=== PATIENT | female | born 1950 | race Caucasian/White ===

== ENCOUNTER 2018-11-09 13:07 | Observation (INO) | payer MEDICARE, OTHER ==
[2018-11-09] MEDS ORDERED: KETOROLAC 30 MG/ML 1 ML VIAL IM STA (14:08)
--- NOTE | 2018-11-09 14:36 | ED ---
Upper Extremity HPI - General Chief Complaint: Extremity Injury, Upper Stated Complaint: Shoulder Pain, Nauseated Time Seen by Provider: 11/09/18 13:35 Source: patient Mode of arrival: ambulatory Limitations: no limitations - History of Present Illness Initial Comments: 68-year-old female patient presents to the emergency department today for evaluation of right arm pain. Patient states she started having some discomfort to the right shoulder last evening. Patient states throughout the night the pain worsens significantly. States today that the right arm is swollen and discolored. States that she did go to the chiropractor to get assistance however while there the manipulation was so painful she became nauseated and dizzy. She denies any vomiting. States that those other symptoms have resolved however her arm is still painful. She denies any injury to the arm. 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 She denies any fevers or chills with this. Denies any history of blood clot. Patient denies any recent rash, shortness breath, chest pain, abdominal pain, vomiting, diarrhea, constipation, back pain, numbness, tingling, hematuria, dysuria, urinary urgency, urinary frequency, headache, visual changes, or any other complaints. - Related Data Allergies Allergy/AdvReac Type Severity Reaction Status Date / Time cephalexin [From Keflex] Allergy Rash/Hives Verified 11/09/18 13:23 erythromycin base Allergy Rash/Hives Verified 11/09/18 13:23 [From Erythrocin] Review of Systems ROS Statement: Those systems with pertinent positive or pertinent negative responses have been documented in the HPI. ROS Other: All systems not noted in ROS Statement are negative. Past Medical History Past Medical History: No Reported History History of Any Multi-Drug Resistant Organisms: None Reported Past Surgical History: Ear Surgery, Hysterectomy Additional Past Surgical History / Comment(s): cataracts bilat eyes, D&C, cyst removed from nose Past Psychological History: No Psychological Hx Reported Smoking Status: Current every day smoker Past Alcohol Use History: None Reported Past Drug Use History: None Reported General Exam Limitations: no limitations General appearance: alert, in no apparent distress, other (This is a well- developed, well-nourished adult female patient in no acute distress. Vital signs upon presentation are temperature 99.0F, pulse 94, respirations 18, blood pressure 169/83, pulse ox 98% on room air.) Eye exam: Present: normal appearance, PERRL, EOMI. Absent: scleral icterus, conjunctival injection, periorbital swelling ENT exam: Present: normal exam, normal oropharynx, mucous membranes moist Respiratory exam: Present: normal lung sounds bilaterally. Absent: respiratory distress, wheezes, rales, rhonchi, stridor Cardiovascular Exam: Present: regular rate, normal rhythm, normal heart sounds. Absent: systolic murmur, diastolic murmur, rubs, gallop, clicks GI/Abdominal exam: Present: soft, normal bowel sounds. Absent: distended, tenderness, guarding, rebound, rigid Extremities exam: Present: normal capillary refill, other (Skin to the right arm is pink, fingers are cool to touch, radial pulses 2+ and equal bilaterally. Patient unable to perform passive or active range of motion. She has tenderness over the right shoulder, over the right upper arm. No swelling.). Absent: normal inspection, full ROM (Decreased range of motion due to increased pain with movement), tenderness, pedal edema, joint swelling, calf tenderness Neurological exam: Present: alert, oriented X3, CN II-XII intact Psychiatric exam: Present: normal affect, normal mood Skin exam: Present: warm, dry, intact, normal color. Absent: rash Course Vital Signs 11/09/18 11/09/18 13:17 18:29 Temperature 99 F 98.2 F Pulse Rate 94 Respiratory 18 Rate Blood Pressure 169/83 O2 Sat by Pulse 98 Oximetry Medical Decision Making - Medical Decision Making 68 year-old female patient presented to the emergency department today for evaluation of right shoulder pain that started last night. Patient states the pain started suddenly without injury. 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 Physical examination did reveal tenderness to the right shoulder and right upper arm. Patient is unable to move the arm without exquisite pain. Patient's neurovascular status is intact, pulses are 2+ and equal bilaterally. Labs reviewed and did reveal elevated white blood cell count at 12.6. C-reactive protein is 23.1. Patient did have temperature 99.0 upon arrival. She reports subjective fevers for the last 2 days. X-ray of the right shoulder is negative. We did perform ultrasound of the right upper extremity which was negative for any evidence of DVT. I did discuss the case with orthopedics and did express concern for septic arthritis. Instructions are to hold antibiotics at this time until they're able to evaluate her in the morning. There was no erythema or swelling surrounding the joint. Patient is currently afebrile. We did discuss the case with medicine, she'll be admitted to Dr. Santiago with orthopedics on consult, she agrees to withold antibiotics for possible culture in the morning. I did discuss all findings, results, and plan with the patient , she is agreeable. - Lab Data Result diagrams: 11/09/18 16:10 11/09/18 16:10 Lab Results 11/09/18 11/09/18 11/09/18 Range/Units 16:10 16:10 16:10 WBC 12.6 H (3.8-10.6) k/uL RBC 5.02 (3.80-5.40) m/uL Hgb 15.1 (11.4-16.0) gm/dL Hct 47.2 H (34.0-46.0) % MCV 94.1 (80.0-100.0) fL MCH 30.2 (25.0-35.0) pg MCHC 32.1 (31.0-37.0) g/dL RDW 12.7 (11.5-15.5) % Plt Count 250 (150-450) k/uL Neutrophils % 79 % Lymphocytes % 14 % Monocytes % 4 % Eosinophils % 1 % Basophils % 1 % Neutrophils # 10.0 H (1.3-7.7) k/uL Lymphocytes # 1.7 (1.0-4.8) k/uL Monocytes # 0.5 (0-1.0) k/uL Eosinophils # 0.1 (0-0.7) k/uL Basophils # 0.1 (0-0.2) k/uL Sodium 139 (137-145) mmol/L Potassium 4.4 (3.5-5.1) mmol/L Chloride 105 (98-107) mmol/L Carbon Dioxide 23 (22-30) mmol/L Anion Gap 11 mmol/L BUN 18 H (7-17) mg/dL Creatinine 0.68 (0.52-1.04) mg/dL Est GFR (CKD-EPI)AfAm >90 (>60 ml/min/1.73 sqM) Est GFR (CKD-EPI)NonAf >90 (>60 ml/min/1.73 sqM) Glucose 112 H (74-99) mg/dL Plasma Lactic Acid Pasha 0.9 (0.7-2.0) mmol/L Calcium 9.6 (8.4-10.2) mg/dL Total Bilirubin 0.6 (0.2-1.3) mg/dL AST 25 (14-36) U/L ALT 27 (9-52) U/L Alkaline Phosphatase 116 (38-126) U/L Troponin I (0.000-0.034) ng/mL C-Reactive Protein 23.1 H (<10.0) mg/L Total Protein 7.5 (6.3-8.2) g/dL Albumin 4.4 (3.5-5.0) g/dL 11/09/18 Range/Units 16:10 WBC (3.8-10.6) k/uL RBC (3.80-5.40) m/uL Hgb (11.4-16.0) gm/dL Hct (34.0-46.0) % MCV (80.0-100.0) fL MCH (25.0-35.0) pg MCHC (31.0-37.0) g/dL RDW (11.5-15.5) % Plt Count (150-450) k/uL Neutrophils % % Lymphocytes % % Monocytes % % Eosinophils % % Basophils % % Neutrophils # (1.3-7.7) k/uL Lymphocytes # (1.0-4.8) k/uL Monocytes # (0-1.0) k/uL Eosinophils # (0-0.7) k/uL Basophils # (0-0.2) k/uL Sodium (137-145) mmol/L Potassium (3.5-5.1) mmol/L Chloride (98-107) mmol/L Carbon Dioxide (22-30) mmol/L Anion Gap mmol/L BUN (7-17) mg/dL Creatinine (0.52-1.04) mg/dL Est GFR (CKD-EPI)AfAm (>60 ml/min/1.73 sqM) Est GFR (CKD-EPI)NonAf (>60 ml/min/1.73 sqM) Glucose (74-99) mg/dL Plasma Lactic Acid Pasha (0.7-2.0) mmol/L Calcium (8.4-10.2) mg/dL Total Bilirubin (0.2-1.3) mg/dL AST (14-36) U/L ALT (9-52) U/L Alkaline Phosphatase (38-126) U/L Troponin I <0.012 (0.000-0.034) ng/mL C-Reactive Protein (<10.0) mg/L Total Protein (6.3-8.2) g/dL Albumin (3.5-5.0) g/dL - Radiology Data Radiology results: report reviewed 4 views of the right shoulder are obtained. Report was reviewed in its entirety. Impression by Dr. Watson shows negative right shoulder exam. Venous Doppler duplex of the right upper extremities was obtained. Report was reviewed in its entirety. Impression by Dr. Watson shows negative for DVT. Normal right arm duplex venous sonogram. Disposition Clinical Impression: Intractable pain Narrative: R/O septic arthritis Disposition: ADMITTED IP TO THIS [facility] Condition: Serious Referrals: Sunday Starr MD [Primary Care Provider] - 1-2 days Decision to Admit Reason: Admit from EC Decision Date: 11/09/18 Decision Time: 18:51
--- NOTE | 2018-11-09 15:01 | XR ---
EXAMINATION TYPE: XR shoulder complete RT DATE OF EXAM: 11/09/2018 COMPARISON: NONE HISTORY: Arm pain and swelling TECHNIQUE: 4 views FINDINGS: I see no fracture nor dislocation. Glenohumeral joint is anatomic. There are no pathologic calcifications. IMPRESSION: Negative right shoulder exam.
--- NOTE | 2018-11-09 15:29 | US ---
EXAMINATION TYPE: US venous doppler duplex UE RT DATE OF EXAM: 11/09/2018 COMPARISON: CLINICAL HISTORY: Pain. Pain. No swelling. No redness. Patient states she lifted a heavy tray at wo rk. Patient states she took two aspirin yesterday for pain. SIDE PERFORMED: Right Right Arm: Negative for DVT IMPRESSION: Grayscale, color doppler, spectral doppler imaging performed of the deep veins of the upper extremiti es. There is normal flow, compressability and vascular waveforms. Normal right arm duplex venous sonogram.
[2018-11-09 16:32] LABS: Basophils # (A) 0.1 k/uL (0-0.2); Basophils % (A) 1 %; Eosinophils # (A) 0.1 k/uL (0-0.7); Eosinophils % (A) 1 %; HCT 47.2 % (34.0-46.0); HGB 15.1 gm/dL (11.4-16.0); Lymphocytes # (A) 1.7 k/uL (1.0-4.8); Lymphocytes % (A) 14 %; MCH 30.2 pg (25.0-35.0); MCHC 32.1 g/dL (31.0-37.0); MCV 94.1 fL (80.0-100.0); Mean Platelet Volume 6.8; Monocytes # (A) 0.5 k/uL (0-1.0); Monocytes % (A) 4 %; Neutrophils % (A) 79 %; Platelet Count 250 k/uL (150-450); RBC 5.02 m/uL (3.80-5.40); RDW 12.7 % (11.5-15.5); WBC 12.6 k/uL (3.8-10.6)
[2018-11-09 16:44] LABS: ALT 27 U/L (9-52); AST 25 U/L (14-36); Albumin 4.4 g/dL (3.5-5.0); Alkaline Phosphatase 116 U/L (38-126); Anion Gap 11 mmol/L; Blood Urea Nitrogen 18 mg/dL (7-17); C Reactive Protein 23.1 mg/L (<10.0); Calcium 9.6 mg/dL (8.4-10.2); Carbon Dioxide 23 mmol/L (22-30); Chloride 105 mmol/L (98-107); Glucose 112 mg/dL (74-99); Potassium 4.4 mmol/L (3.5-5.1); Sodium 139 mmol/L (137-145); Total Bilirubin 0.6 mg/dL (0.2-1.3); Total Protein 7.5 g/dL (6.3-8.2)
[2018-11-09] MEDS ORDERED: NALOXONE 0.4 MG/ML 1 ML VIAL IV PRN (18:39)
[2018-11-09] MEDS ORDERED: MORPHINE SULFATE 4 MG/ML SYRINGE IV PRN (18:39)
[2018-11-09] MEDS ORDERED: ONDANSETRON 4 MG/2 ML VIAL IVP PRN (18:39)
[2018-11-09] MEDS ORDERED: SODIUM CHLORIDE 0.9% 1,000 ML IV SCH (18:45)
[2018-11-09 20:46] VITALS: BMI 31.4
[2018-11-10] MEDS: KETOROLAC 30 MG/ML 1 ML VIAL IVP PRN ×2 (00:11→07:40)
[2018-11-10 06:52] VITALS: BP 153/72; PULSE 86; RESP 16; TEMP 98.6
--- NOTE | 2018-11-10 10:55 | P.CNOR ---
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 She presents for the primary issue of right shoulder pain. She says the pain started on Sunday she started to develop some soreness in she denies any fevers or chills denies any recent infections or illness. She says that she had increasing pain and went to a chiropractor where she had some work on her shoulder and massage with some oils. She says that she developed some shortness of breath and feelings that her airway was closing and she was recommended to go to the hospital. She presented to the emergency room and was found have continued right shoulder pain with a somewhat increased white count at 12.9 and elevated CRP. Her symptoms of her nausea and airway symptoms had resolved that point. In she was afebrile. She continued some pain at her right shoulder and had great copiously moving her right shoulder. She denied any swelling or erythema around her shoulder. She denied any trauma to her shoulder. Denies any problems of her right shoulder like this before. She says she did have some pain extending down her right arm and down toward her hand. She denied any problems in her neck. She had new problems at her left upper extremity her legs. She denies any chest pain. Today she feels that her extremity is improving. She was treated with Toradol and has had some improvement with this. She did not receive any antibiotics. She says she is not having numbness in her hands and fingers and she is able to slightly move her arm that her today than she was yesterday. She still sore at her right shoulder and hesitant to move her right shoulder but she is able to use her right arm to small degree. She denies any fevers chills. Denies any vomiting. Review of Systems As stated in the HPI. Denies any weakness or hand or fingers. She says her shoulder isn't really tender to press on. But has pain with motion. Past Medical History Past Medical History: No Reported History Additional Past Medical History / Comment(s): She says over the past year she has seen Dr. Wharton and Dr. Pitt but she is unclear as to what she had had treatment for. 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 History of Any Multi-Drug Resistant Organisms: None Reported Past Surgical History: Ear Surgery, Hysterectomy Additional Past Surgical History / Comment(s): cataracts bilat eyes, D&C, cyst removed from nose Past Psychological History: No Psychological Hx Reported Smoking Status: Current every day smoker Past Alcohol Use History: None Reported Past Drug Use History: None Reported - Past Family History Father History Unknown: Yes Mother Family Medical History: Congestive Heart Failure (CHF) Medications and Allergies Home Medications Medication Instructions Recorded Confirmed Type Fluticasone Nasal [place] [Flonase 1 spray EA NOSTRIL DAILY 11/09/18 11/09/18 History Nasal [place]] Ketorolac [Toradol] 10 mg PO Q8HR PRN #40 tab 11/10/18 Rx Allergies Allergy/AdvReac Type Severity Reaction Status Date / Time cephalexin [From Keflex] Allergy Rash/Hives Verified 11/09/18 19:00 erythromycin base Allergy Rash/Hives Verified 11/09/18 19:00 [From Erythrocin] Physical Examination Osteopathic Statement: *. No significant issues noted on an osteopathic structural exam other than those noted in the History and Physical/Consult. - Shoulder right Appearance: normal, other (At her right shoulder she does limit her motion. She is able to abduct her arm to approximately 40 and flex her arm to approximately 40 at her shoulder though she does a somewhat slowly. She has internal/external rotation with full internal rotation to 90 and external rotation to approximately 110. She is able to flex and extend her right elbow. She has full active and passive range range of motion at her wrist and hand and fingers. Her sensory is intact. There is no erythema at her shoulder. She is nontender to palpation at her shoulder. May be some mild soreness over her before meals joint. She does have some paravertebral spasm and spasm at her trapezium. She is good range of motion at her neck. She is nontender over her neck.) Results Her labs show white count to 12 and a slightly elevated CRP - Labs Labs: Abnormal Lab Results - Last 24 Hours (Table) 11/09/18 11/09/18 Range/Units 16:10 16:10 WBC 12.6 H (3.8-10.6) k/uL Hct 47.2 H (34.0-46.0) % Neutrophils # 10.0 H (1.3-7.7) k/uL BUN 18 H (7-17) mg/dL Glucose 112 H (74-99) mg/dL C-Reactive Protein 23.1 H (<10.0) mg/L H & H 11/09/18 Range/Units 16:10 Hgb 15.1 (11.4-16.0) gm/dL Hct 47.2 H (34.0-46.0) % Result Diagrams: 11/09/18 16:10 11/09/18 16:10 - Diagnostic results Shoulder x-ray: report reviewed, image reviewed (X-rays of her right shoulder show some degenerative change at her before meals joint. There is no evidence of fracture or dislocation. I do not see any obvious bony erosion.) Assessment and Plan Assessment: Acute right shoulder pain, improving with Toradol Right upper extremity pain No obvious infection, does not appear to be septic arthritis at her shoulder Plan: Acute right shoulder pain, improving with Toradol Right upper extremity pain No obvious infection, does not appear to be septic arthritis at her shoulder The patient has acute pain in her right shoulder affecting her right arm. She has had improvement with Toradol overnight. She is not receiving any antibiotic and she is not having evidence of fevers or chills and is not having any worsening at her right shoulder. Clinically she has been able to move around the hallways and walk quite comfortably and converse quite comfortably. She uses her right arm while she speaks but does have limited motion at her right shoulder. Her exam shows some soreness over her shoulder but there is no erythema there is no warmth there is no tenderness over her right shoulder joint. She is able to move her shoulder though through small ranges of motion. Clinically she does not seem to have evidence of acute infection or septic arthritis at her right shoulder. I do not plan surgical intervention for her. I had considered the possibility of a steroid injection at her right shoulder however she had problems with injections at her knees in the past and feels that was the steroid that gave her issues and declined the possibility of injection. I do not plan to pursue surgical intervention for her shoulder at this point though I do think she could benefit with further imaging likely in the form of MRI of her right shoulder. I think it is okay to schedule and have this done on an outpatient basis. I think it is okay for her to have regular diet and to be discharged home today from an orthopedic standpoint with close follow-up in approximately 1 week. It is possible that she has an acute rotator cuff tear versus the possibility of radicular symptoms at her right upper extremity and we can work with these issues up on an outpatient basis. I tried to explain this to her bedside. I offered her a sling to help with some comfort for her right shoulder and she declined. It is okay from orthopedic standpoint for her to be discharged home today and I discussed this with medicine service. We will follow her closely and outpatient basis. Time with Patient: Greater than 30
--- NOTE | 2018-11-10 13:22 | P.HPIM ---
History of Present Illness H&P Date: 11/10/18 Chief Complaint: Right arm pain This will serve both as a H&P and discharge summary. This is a 68-year-old female who presented to the emergency department with right shoulder pain, also fever and chills. She was seeing a chiropractor and during manipulation patient reported worsening pain, so he advised her to go to the emergency department. Upon arrival to the emergency department she did have a low-grade fever of 99. WBC 12.6, CRP 23.1. Patient was admitted for concern for septic arthritis. Dr. Chavez was consulted who did not feel this was septic arthritis, possible acute rotator cuff tear versus radicular symptoms. Recommends outpatient MRI for further imaging. Right shoulder x-ray was negative for fracture dislocation, venous Doppler of right upper extremity negative for any DVTs. Patient has been complaining of worsening cough over last several days she is noted to have wheezing on exam, will treat her for acute bronchitis. Review of Systems Constitutional: Reports chills, Reports chronic pain, Reports fatigue, Reports fever, Denies night sweats Ears, nose, mouth and throat: Denies dysphagia, Denies headache, Denies nasal congestion, Denies nasal discharge, Denies sore throat Cardiovascular: Denies dyspnea on exertion, Denies edema, Denies orthopnea, Denies palpitations, Denies syncope Respiratory: Reports cough, Reports cough with sputum, Reports dyspnea, Reports wheezing Gastrointestinal: Denies abdominal pain, Denies constipation, Denies diarrhea, Denies heartburn, Denies indigestion, Denies nausea, Denies vomiting Genitourinary: Denies dysuria, Denies flank pain, Denies hematuria, Denies nocturia, Denies urgency, Denies urinary frequency Musculoskeletal: Reports limitation of motion, Reports myalgias, Denies frequent falls, Denies muscle weakness, Denies neck pain, Denies neck stiffness Integumentary: Denies dryness, Denies lesions, Denies pruritus, Denies rash, Denies wounds Neurological: Denies ataxia, Denies confusion, Denies headaches, Denies seizures , Denies syncope, Denies tremors, Denies visual changes Psychiatric: Denies anxiety, Denies confusion, Denies depression, Denies insomnia, Denies irritability Endocrine: Denies palpitations, Denies polyuria, Denies thyroid mass, Denies weight change Hematologic/Lymphatic: Denies lymphadenopathy, Denies lymphedema Allergic/Immunologic: Reports wheezing Past Medical History Past Medical History: No Reported History Additional Past Medical History / Comment(s): She says over the past year she has seen Dr. Wharton and Dr. Pitt but she is unclear as to what she had had treatment for. 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 History of Any Multi-Drug Resistant Organisms: None Reported Past Surgical History: Ear Surgery, Hysterectomy Additional Past Surgical History / Comment(s): cataracts bilat eyes, D&C, cyst removed from nose Past Psychological History: No Psychological Hx Reported Smoking Status: Current every day smoker Past Alcohol Use History: None Reported Past Drug Use History: None Reported - Past Family History Father History Unknown: Yes Mother Family Medical History: Congestive Heart Failure (CHF) Medications and Allergies Home Medications Medication Instructions Recorded Confirmed Type Fluticasone Nasal [place] [Flonase 1 spray EA NOSTRIL DAILY 11/09/18 11/09/18 History Nasal [place]] Amoxicillin/Potassium Clav 1 tab PO Q12HR #14 tab 11/10/18 Rx [Augmentin 875-125 Tablet] Ketorolac [Toradol] 10 mg PO Q8HR PRN #40 tab 11/10/18 Rx Omeprazole 20 mg PO DAILY #30 cap 11/10/18 Rx Allergies Allergy/AdvReac Type Severity Reaction Status Date / Time cephalexin [From Keflex] Allergy Rash/Hives Verified 11/09/18 19:00 erythromycin base Allergy Rash/Hives Verified 11/09/18 19:00 [From Erythrocin] Physical Exam Vitals: Vital Signs Temp Pulse Pulse Resp BP BP Pulse Ox 11/10/18 06:47 98.6 F 86 16 153/72 95 11/10/18 01:28 138/82 11/09/18 23:00 98.3 F 84 18 168/71 95 11/09/18 20:49 146/72 11/09/18 19:30 98.4 F 96 16 164/80 97 11/09/18 19:18 68 18 158/78 99 11/09/18 18:29 98.2 F 11/09/18 13:17 99 F 94 18 169/83 98 Intake and Output 11/09/18 11/10/18 11/10/18 22:59 06:59 14:59 Other: Voiding Method Toilet Toilet Weight 88.451 kg - Constitutional General appearance: no acute distress - EENT Eyes: PERRLA, normal appearance ENT: hearing grossly normal, normal oropharynx - Neck Neck: lymphadenopathy, normal ROM, no thyromegaly Thyroid: bilateral: normal size, negative: enlarged, nodule - Respiratory Respiratory: bilateral: CTA, wheezing, negative: diminished, rhonchi - Cardiovascular Rhythm: regular Heart sounds: normal: S1, S2 - Gastrointestinal General gastrointestinal: no hepatomegaly, normal bowel sounds, no organomegaly , soft, no tenderness - Integumentary Integumentary: normal - Neurologic Neurologic: CNII-XII intact - Musculoskeletal Musculoskeletal: gait normal - Psychiatric Psychiatric: A&O x's 3 Results CBC & Chem 7: 11/09/18 16:10 11/09/18 16:10 Labs: Abnormal Lab Results - Last 24 Hours (Table) 11/09/18 11/09/18 Range/Units 16:10 16:10 WBC 12.6 H (3.8-10.6) k/uL Hct 47.2 H (34.0-46.0) % Neutrophils # 10.0 H (1.3-7.7) k/uL BUN 18 H (7-17) mg/dL Glucose 112 H (74-99) mg/dL C-Reactive Protein 23.1 H (<10.0) mg/L Thrombosis Risk Factor Assmnt - Choose All That Apply Each Risk Factor Represents 2 Points: Age 61-74 years Thrombosis Risk Factor Assessment Total Risk Factor Score: 2 Thrombosis Risk Factor Assessment Level: Low Risk Assessment and Plan Plan: 1. 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 Septic joint ruled out, orthopedics consulted, will do Toradol for pain control, MRI as outpatient. Venous Doppler negative for DVT, x-ray negative for dislocation or fracture. 2. Fever related to acute bronchitis. Augmentin [id number] by mouth twice a day for total week. 3. Tobacco use. Smoking cessation recommended, patient reports she has not required. The above impression and plan of care have been discussed and directed by signing physician. Yadi Olvera nurse practitioner acting as scribe for signing physician.
== END 2018-11-10 11:49 | disposition home or self-care (01) ==
LOC: EC 13:07 → 4SSUR 18:58
PROVIDERS: ADMIT Internal Medicine; ATTEND Internal Medicine
DX: M19.011 Primary osteoarthritis, right shoulder (principal); J20.9 Acute bronchitis, unspecified; M79.621 Pain in right upper arm; R79.82 Elevated C-reactive protein (CRP); M17.0 Bilateral primary osteoarthritis of knee; R11.0 Nausea; F17.200 Nicotine dependence, unspecified, uncomplicated; Z79.899 Other long term (current) drug therapy; Z88.1 Allergy status to other antibiotic agents; Z90.710 Acquired absence of both cervix and uterus; Z98.42 Cataract extraction status, left eye; Z98.41 Cataract extraction status, right eye; Z82.49 Family history of ischemic heart disease and other diseases of the circulatory system
CPT/HCPCS: 96376; 96374; 96372; 99285; 36415; 80053; 83605; 84484; 85025; 86140; 87040; 73030; 93971; G0378 ×2; J1885 ×2

== ENCOUNTER 2020-10-06 21:38 | Emergency (ER) | payer MEDICARE, OTHER ==
--- NOTE | 2020-10-06 22:25 | XR ---
EXAMINATION TYPE: XR foot complete LT DATE OF EXAM: 10/06/2020 COMPARISON: NONE HISTORY: Foot pain and swelling TECHNIQUE: 3 views FINDINGS: Metatarsals appear intact. I see no fracture nor dislocation. The toes appear intact. There are no erosions. IMPRESSION: Negative right foot exam.
[2020-10-06] MEDS ORDERED: KETOROLAC 15 MG/ML 1 ML VIAL IVP STA (22:30)
--- NOTE | 2020-10-06 22:58 | ED ---
General Adult HPI - General Chief complaint: Extremity Injury, Lower Stated complaint: L Foot swelling/pain Time Seen by Provider: 10/06/20 22:13 Source: patient Mode of arrival: ambulatory Limitations: no limitations - History of Present Illness Initial comments: 70-year-old female patient presents to the emergency department today for evaluation of pain to the left foot. Patient states that she is having redness, swelling, and extreme tenderness over the left great toe especially over the joint. Patient denies taking any medication for her symptoms. Denies fever or chills. Denies any known injury. Patient states the area is even very tender to touch. Denies history of similar symptoms. Denies excessive use of alcohol or beer. Patient denies any recent rash, cough, shortness of breath, chest pain, abdominal pain, nausea, vomiting, diarrhea, constipation, back pain, numbness, tingling, dizziness, weakness, hematuria, dysuria, urinary urgency, urinary frequency, headache, visual changes, or any other complaints. - Related Data Home Medications Medication Instructions Recorded Confirmed Fluticasone Nasal [place] [Flonase 1 spray EA NOSTRIL DAILY 11/09/18 11/09/18 Nasal [place]] Previous Rx's Medication Instructions Recorded Amoxicillin/Potassium Clav 1 tab PO Q12HR #14 tab 11/10/18 [Augmentin 875-125 Tablet] Ketorolac [Toradol] 10 mg PO Q8HR PRN #40 tab 11/10/18 Omeprazole 20 mg PO DAILY #30 cap 11/10/18 Indomethacin [Indocin] 50 mg PO Q8H #12 capsule 10/06/20 Allergies Allergy/AdvReac Type Severity Reaction Status Date / Time amlodipine Allergy Rash/Hives Verified 10/06/20 21:48 bupivacaine [From Marcaine] Allergy Rash/Hives Verified 10/06/20 21:47 cephalexin [From Keflex] Allergy Rash/Hives Verified 10/06/20 21:47 ciprofloxacin [From Cipro] Allergy Rash/Hives Verified 10/06/20 21:48 erythromycin base Allergy Rash/Hives Verified 10/06/20 21:47 [From Erythrocin] lisinopril Allergy Rash/Hives Verified 10/06/20 21:48 Review of Systems ROS Statement: Those systems with pertinent positive or pertinent negative responses have been documented in the HPI. ROS Other: All systems not noted in ROS Statement are negative. Past Medical History Past Medical History: No Reported History Additional Past Medical History / Comment(s): She says over the past year she has seen Dr. Wharton and Dr. Pitt but she is unclear as to what she had had treatment for. 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 History of Any Multi-Drug Resistant Organisms: None Reported Past Surgical History: Ear Surgery, Hysterectomy Additional Past Surgical History / Comment(s): cataracts bilat eyes, D&C, cyst removed from nose Past Psychological History: No Psychological Hx Reported Smoking Status: Current every day smoker Past Alcohol Use History: None Reported Past Drug Use History: None Reported - Past Family History Father History Unknown: Yes Mother Family Medical History: Congestive Heart Failure (CHF) General Exam Limitations: no limitations General appearance: alert, in no apparent distress, other (This is a well-de veloped, well-nourished adult female patient in no acute distress. Vital signs upon presentation are temperature 98.4F, pulse 114, respirations 20, blood pressure 165/88, pulse ox 97% on room air.) Respiratory exam: Present: normal lung sounds bilaterally. Absent: respiratory distress, wheezes, rales, rhonchi, stridor Cardiovascular Exam: Present: regular rate, normal rhythm, normal heart sounds. Absent: systolic murmur, diastolic murmur, rubs, gallop, clicks Extremities exam: Present: full ROM, normal capillary refill, other (Soft tissue swelling, erythema overlying the left MTP joint. Skin is otherwise pink, warm, dry. Cap refills less than 3 seconds. Pedal and posttibial pulses are 2+ and equal bilaterally.). Absent: normal inspection, tenderness, pedal edema, joint swelling, calf tenderness Neurological exam: Present: alert, oriented X3, CN II-XII intact Psychiatric exam: Present: normal affect, normal mood Skin exam: Present: warm, dry, intact, normal color. Absent: rash Course Vital Signs 10/06/20 10/07/20 21:42 00:28 Temperature 98.4 F 98.5 F Pulse Rate 114 H 99 Respiratory 20 17 Rate Blood Pressure 165/88 160/73 O2 Sat by Pulse 97 98 Oximetry Medical Decision Making - Medical Decision Making 62-year-old male patient presents to the emergency department today for evaluation of pain, swelling, redness of the left great toe. Physical examination did reveal erythema overlying soft tissue swelling over the first MTP joint on the left foot. X-ray was negative. Orthopedics labs were negative . Symptoms and findings are consistent with gout. She was given a dose of Toradol IV. We'll discharge home with a prescription for indomethacin. She is instructed to follow-up with her primary care physician for recheck in 1-2 days. Return parameters were discussed in detail. She verbalizes understanding and agrees with this plan. - Lab Data Result diagrams: 10/06/20 22:49 10/06/20 22:49 Lab Results 10/06/20 10/06/20 Range/Units 22:49 22:49 WBC 10.4 (3.8-10.6) k/uL RBC 4.83 (3.80-5.40) m/uL Hgb 15.1 (11.4-16.0) gm/dL Hct 45.1 (34.0-46.0) % MCV 93.5 (80.0-100.0) fL MCH 31.2 (25.0-35.0) pg MCHC 33.4 (31.0-37.0) g/dL RDW 12.5 (11.5-15.5) % Plt Count 223 (150-450) k/uL MPV 7.9 Neutrophils % 62 % Lymphocytes % 26 % Monocytes % 7 % Eosinophils % 2 % Basophils % 1 % Neutrophils # 6.4 (1.3-7.7) k/uL Lymphocytes # 2.7 (1.0-4.8) k/uL Monocytes # 0.7 (0-1.0) k/uL Eosinophils # 0.2 (0-0.7) k/uL Basophils # 0.1 (0-0.2) k/uL Sodium 135 L (137-145) mmol/L Potassium 4.4 (3.5-5.1) mmol/L Chloride 105 (98-107) mmol/L Carbon Dioxide 23 (22-30) mmol/L Anion Gap 7 mmol/L BUN 22 H (7-17) mg/dL Creatinine 0.73 (0.52-1.04) mg/dL Est GFR (CKD-EPI)AfAm >90 (>60 ml/min/1.73 sqM) Est GFR (CKD-EPI)NonAf 85 (>60 ml/min/1.73 sqM) Glucose 136 H (74-99) mg/dL Uric Acid 4.9 (3.7-7.4) mg/dL Calcium 9.0 (8.4-10.2) mg/dL Total Bilirubin 0.4 (0.2-1.3) mg/dL AST 27 (14-36) U/L ALT 23 (4-34) U/L Alkaline Phosphatase 90 (38-126) U/L Total Protein 6.7 (6.3-8.2) g/dL Albumin 3.8 (3.5-5.0) g/dL - Radiology Data Radiology results: report reviewed, image reviewed Three-view x-ray of the left foot are obtained. Report reviewed in its entirety. Impression by Dr. Watson shows negative left foot exam. Disposition Clinical Impression: Gouty arthritis of left great toe Disposition: HOME SELF-CARE Condition: Good Instructions (If sedation given, give patient instructions): Low Purine Diet (ED), Gout (ED) Additional Instructions: Take medication as directed. Once the pain stops, discontinue to the pain medication when the pain stops. Follow up with your primary care physician for recheck in 1-2 days. Return to the emergency department immediately for any new, worsening, or concerning symptoms. Prescriptions: Indomethacin [Indocin] 50 mg PO Q8H #12 capsule Is patient prescribed a controlled substance at d/c from ED?: No Referrals: Sunday Starr MD [Primary Care Provider] - 1-2 days Time of Disposition: 23:54
[2020-10-06 23:12] LABS: Basophils # (A) 0.1 k/uL (0-0.2); Basophils % (A) 1 %; Eosinophils # (A) 0.2 k/uL (0-0.7); Eosinophils % (A) 2 %; HCT 45.1 % (34.0-46.0); HGB 15.1 gm/dL (11.4-16.0); Lymphocytes # (A) 2.7 k/uL (1.0-4.8); Lymphocytes % (A) 26 %; MCH 31.2 pg (25.0-35.0); MCHC 33.4 g/dL (31.0-37.0); MCV 93.5 fL (80.0-100.0); Mean Platelet Volume 7.9; Monocytes # (A) 0.7 k/uL (0-1.0); Monocytes % (A) 7 %; Neutrophils # (A) 6.4 k/uL (1.3-7.7); Neutrophils % (A) 62 %; Platelet Count 223 k/uL (150-450); RBC 4.83 m/uL (3.80-5.40); RDW 12.5 % (11.5-15.5); WBC 10.4 k/uL (3.8-10.6)
[2020-10-06 23:17] LABS: Chloride 105 mmol/L (98-107)
[2020-10-06 23:20] LABS: ALT 23 U/L (4-34); AST 27 U/L (14-36); African American GFR (CKD) >90 (>60 ml/min/1.73 sqM); Albumin 3.8 g/dL (3.5-5.0); Alkaline Phosphatase 90 U/L (38-126); Anion Gap 7 mmol/L; Blood Urea Nitrogen 22 mg/dL (7-17); Carbon Dioxide 23 mmol/L (22-30); Glucose 136 mg/dL (74-99); Non-African American GFR(CKD) 85 (>60 ml/min/1.73 sqM); Potassium 4.4 mmol/L (3.5-5.1); Sodium 135 mmol/L (137-145); Total Bilirubin 0.4 mg/dL (0.2-1.3); Total Protein 6.7 g/dL (6.3-8.2); Uric Acid 4.9 mg/dL (3.7-7.4)
[2020-10-07 00:29] VITALS: BP 160/73; PULSE 99; RESP 17; TEMP 98.5
== END 2020-10-07 00:28 | disposition home or self-care (01) ==
LOC: EC 21:38
DX: M10.9 Gout, unspecified (principal); F17.200 Nicotine dependence, unspecified, uncomplicated; Z88.1 Allergy status to other antibiotic agents; Z88.8 Allergy status to other drugs, medicaments and biological substances; Z98.42 Cataract extraction status, left eye; Z98.41 Cataract extraction status, right eye; Z90.710 Acquired absence of both cervix and uterus
CPT/HCPCS: 36415; 80053; 84550; 85025; 73630; 99283; 96374; J1885

== ENCOUNTER → 2020-10-12 | Outpatient (CLI) | payer MEDICARE, OTHER ==
[2020-10-12 18:50] LABS: C Reactive Protein 1.4 mg/dL (0.0-0.8)
[2020-10-12 19:06] LABS: Folate, Serum 18.4 ng/mL
[2020-10-12 21:20] LABS: Hemoglobin A1C 6.2 % (4.0-6.0)
== END | disposition home or self-care (01) ==
LOC: LABWHC1 12:14
PROVIDERS: ATTEND Family Medicine
DX: G62.9 Polyneuropathy, unspecified (principal); M10.9 Gout, unspecified; R73.09 Other abnormal glucose; R60.9 Edema, unspecified
CPT/HCPCS: 36415; 82607; 82746; 83036; 84550; 86140

== ENCOUNTER 2021-10-11 15:24 | Emergency (ER) | payer MEDICARE, OTHER ==
[2021-10-11 16:05] VITALS: BP 163/108; PULSE 104; TEMP 99.4
--- NOTE | 2021-10-11 16:39 | XR ---
EXAMINATION TYPE: XR chest 2V DATE OF EXAM: 10/11/2021 COMPARISON: NONE HISTORY: Cough TECHNIQUE: 2 views FINDINGS: Heart and mediastinum are normal. Lungs are clear. Diaphragm is normal. Bony thorax is inta ct. Pulmonary vascularity is normal. IMPRESSION: Normal chest.
--- NOTE | 2021-10-11 19:37 | ED ---
General Adult HPI - General Chief complaint: Upper Respiratory Infection Stated complaint: Fever,Cough Time Seen by Provider: 10/11/21 18:40 Source: patient, family Mode of arrival: ambulatory Limitations: no limitations - History of Present Illness Initial comments: 71 year-old female patient presents to the emergency department for evaluation of cough, body aches, nausea, lack of appetite, and loss of taste. States she has been sick with symptoms since 10/03/21. States that she did see her physician who instructed her to double her hydrocortisone dose daily. Denies taking any other medications for her symptoms. States she did have fevers for the first 5 days but those have resolved. She denies any vomiting or diarrhea. Denies any chest pain. She was having shortness of breath that she is starting to feel better today. Patient denies any recent rash, abdominal pain, back pain, numbness, tingling, dizziness, weakness, hematuria, dysuria, urinary urgency, urinary frequency, headache, visual changes, or any other complaints. - Related Data Home Medications Medication Instructions Recorded Confirmed Acetaminophen [Tylenol 8 Hour] 650 mg PO BID PRN 10/11/21 10/11/21 Albuterol Sulfate [Ventolin HFA] 2 puff INHALATION RT-Q6H PRN 10/11/21 10/11/21 Ascorbic Acid [Vitamin C] 500 mg PO DAILY 10/11/21 10/11/21 Cholecalciferol [Vitamin D3 (25 100 mcg PO DAILY 10/11/21 10/11/21 Mcg = 1000 Iu)] Hydrocortisone [Cortef] 10 mg PO DAILY@1500 10/11/21 10/11/21 Hydrocortisone [Cortef] 30 mg PO DAILY 10/11/21 10/11/21 Levothyroxine Sodium [Synthroid] 25 mcg PO DAILY 10/11/21 10/11/21 Magnesium 250 mg PO DAILY 10/11/21 10/11/21 Previous Rx's Medication Instructions Recorded Ondansetron [Zofran ODT] 4 mg PO Q8HR PRN #10 tab 10/11/21 guaiFENesin-DM 600/30MG [Mucinex 2 each PO Q12HR PRN #20 tab 10/11/21 Dm] Allergies Allergy/AdvReac Type Severity Reaction Status Date / Time amlodipine Allergy Rash/Hives Verified 10/11/21 19:20 bupivacaine [From Marcaine] Allergy Rash/Hives Verified 10/11/21 19:20 cephalexin [From Keflex] Allergy Rash/Hives Verified 10/11/21 19:20 ciprofloxacin [From Cipro] Allergy Rash/Hives Verified 10/11/21 19:20 erythromycin base Allergy Rash/Hives Verified 10/11/21 19:20 [From Erythrocin] lisinopril Allergy Rash/Hives Verified 10/11/21 19:20 Review of Systems ROS Statement: Those systems with pertinent positive or pertinent negative responses have been documented in the HPI. ROS Other: All systems not noted in ROS Statement are negative. Past Medical History Past Medical History: No Reported History Additional Past Medical History / Comment(s): She says over the past year she has seen Dr. Wharton and Dr. Pitt but she is unclear as to what she had had treatment for. 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 History of Any Multi-Drug Resistant Organisms: None Reported Past Surgical History: Ear Surgery, Hysterectomy Additional Past Surgical History / Comment(s): cataracts bilat eyes, D&C, cyst removed from nose Past Psychological History: No Psychological Hx Reported Smoking Status: Current every day smoker Past Alcohol Use History: None Reported Past Drug Use History: None Reported - Past Family History Father History Unknown: Yes Mother Family Medical History: Congestive Heart Failure (CHF) General Exam Limitations: no limitations General appearance: alert, in no apparent distress, other (This is a well- developed, well-nourished adult female patient in no acute distress.) Eye exam: Present: normal appearance, PERRL, EOMI. Absent: scleral icterus, conjunctival injection, periorbital swelling ENT exam: Present: normal exam, normal oropharynx, mucous membranes moist Respiratory exam: Present: normal lung sounds bilaterally. Absent: respiratory distress, wheezes, rales, rhonchi, stridor Cardiovascular Exam: Present: regular rate, normal rhythm, normal heart sounds. Absent: systolic murmur, diastolic murmur, rubs, gallop, clicks GI/Abdominal exam: Present: soft, normal bowel sounds. Absent: distended, tenderness, guarding, rebound, rigid Neurological exam: Present: alert, oriented X3, CN II-XII intact Psychiatric exam: Present: normal affect, normal mood Skin exam: Present: warm, dry, intact, normal color. Absent: rash Course Vital Signs 10/11/21 16:02 Temperature 99.4 F Pulse Rate 104 H Respiratory 19 Rate Blood Pressure 163/108 O2 Sat by Pulse 95 Oximetry Medical Decision Making - Medical Decision Making 71-year-old female patient presented to the emergency department today for evaluation of multiple symptoms. She did test positive for COVID-19. Chest x- ray was negative. Physical examination is unremarkable. Should clear equal lung sounds. She is in no respiratory distress. Vital signs were unremarkable. I did discuss that she was within the timeframe to receive monoclonal antibodies. We discussed risks versus benefits of receiving and refusing the medication. She decided she did not want to receive these. She was instructed that she had 2 more days or should be eligible she changed her mind. She verb alizes she was feeling better today and thinks she will do well. She is instructed to follow-up with her primary care physician for recheck in 1-2 days. Return parameters were discussed in detail. She verbalizes understanding and agrees with this plan. My attending is Dr. Grimm. - Lab Data Lab Results 10/11/21 Range/Units 16:07 Coronavirus (PCR) Detected A (Not Detectd) - Radiology Data Radiology results: report reviewed, image reviewed Two-view x-ray of the chest is obtained. Report was reviewed in its entirety. Impression by Dr. Watson shows normal chest. Disposition Clinical Impression: COVID-19 Disposition: HOME SELF-CARE Condition: Good Instructions (If sedation given, give patient instructions): Coronavirus Disease 2019 (COVID-19) Additional Instructions: Increase fluids. Take medications as directed. Follow-up through primary care physician for recheck in 1-2 days. Return for any new, worsening, or concerning symptoms. Prescriptions: guaiFENesin-DM 600/30MG [Mucinex Dm] 2 each PO Q12HR PRN #20 tab PRN Reason: Cough Ondansetron [Zofran ODT] 4 mg PO Q8HR PRN #10 tab PRN Reason: Nausea Is patient prescribed a controlled substance at d/c from ED?: No Referrals: Sunday Starr MD [Primary Care Provider] - 1-2 days Time of Disposition: 19:37
[2021-10-12 01:53] VITALS: RESP 20
== END 2021-10-11 20:05 | disposition home or self-care (01) ==
LOC: EC 15:24
DX: U07.1 COVID-19 (principal); F17.200 Nicotine dependence, unspecified, uncomplicated; Z79.51 Long term (current) use of inhaled steroids; Z79.890 Hormone replacement therapy; Z79.899 Other long term (current) drug therapy
CPT/HCPCS: 71046; 87635; 99283

== ENCOUNTER 2023-10-16 06:54 | Day surgery (SDC) | payer MEDICARE, OTHER ==
[2023-10-10 10:22] VITALS: BMI 33.9
[~2023-10-16 06:54] MED LIST: LACTATED RINGERS 1,000 ML IV SCH
[2023-10-16 08:00] VITALS: TEMP 97.9
[2023-10-16] MEDS ORDERED: PROPOFOL 10 MG/ML 20 ML VIAL IV ONE (08:29)
[2023-10-16] MEDS ORDERED: LIDOCAINE 1% INJ 10MG/ML (20 ML MDV) ONE (08:29)
--- NOTE | 2023-10-16 08:49 | P.PCN ---
Date of Procedure: 10/16/23 Procedure(s) Performed: Brief history: Patient is a pleasant 73-year-old white female scheduled for an elective upper endoscopy as well as colonoscopy as a part of evaluation of GERD/intermittent dysphagia to solids and screening for colon cancer Procedure performed: Esophagogastroduodenoscopy with biopsy Colonoscopy with snare polypectomy Preoperative diagnosis: GERD/intermittent dysphagia to solids Screening for colon cancer Anesthesia: MAC Procedure: After informed consent was obtained from the patient was brought into the endoscopy unit and IV sedation was administered by anesthesia under continuous monitoring. Initially upper endoscopy was done. The Olympus GF 160 video endoscope was inserted inserted into the mouth and esophagus intubated without any difficulty and was gradually advanced into the stomach and duodenum and carefully examined. The bulb and second part of the duodenum appeared normal. The scope was then withdrawn into the stomach adequately insufflated with air and upon careful examination the antrum had mild gastritis and biopsies were done from this area. Mucosa of the body, cardia and fundus appeared normal. The scope was then withdrawn into the esophagus. The GE junction was located at 40 cm to the incisors. It appeared regular with no erythema erosions or ulcerations. Rest of the esophagus appeared normal. Biopsies were done from the distal esophagus. Patient tolerated the procedure well. At this time the patient continued to remain sedation. Initial digital rectal examination was normal. Olympus CF 160 video colonoscope was then inserted into the rectum and gradually advanced to the cecum without any difficulty. Careful examination was performed as the scope was gradually being withdrawn. The prep was excellent. The cecum, ascending colon appeared normal. In the transverse colon there was a 2 segment of flat polyp that was removed by piecemeal snare polypectomy and complete polypectomy accomplished. Rest of the, transverse colon, descending colon, appeared normal. In the segment colon there was a 5 mm and 1 cm polyp removed by snare polypectomy. In the distal rectum there was a 4 mm and 5 limited polyp removed by snare polypectomy. Scattered similar diverticulosis seen. Retroflexion was performed in the rectum and no lesions were noted. Patient tolerated the procedure well. Impression: 1. Upper endoscopy revealed mild antral gastritis but no evidence of esophagitis or esophageal stricture 2. Colonoscopy revealed: 2 cm flat transverse colon polyp status post polypectomy 5 mm and 1 cm semi-colon polyp status post polypectomy 4 mm 5 limited distal rectal polyp status post polypectomy Scattered sigmoidal diverticulosis Recommendations: Findings of this examination were discussed with the patient as well as a family. She was advised to follow with the biopsy results.with the biopsy result adenoma she can have a repeat coloscopy in 3 years
[2023-10-16 09:32] VITALS: BP 137/60; PULSE 93; RESP 15
== END 2023-10-16 09:30 | disposition home or self-care (01) ==
LOC: ORWHC2ENDO 06:54
PROVIDERS: ATTEND Internal Medicine Gastroenterology
DX: Z12.11 Encounter for screening for malignant neoplasm of colon (principal); D12.5 Benign neoplasm of sigmoid colon; D12.8 Benign neoplasm of rectum; D12.3 Benign neoplasm of transverse colon; K21.00 Gastro-esophageal reflux disease with esophagitis, without bleeding; K29.70 Gastritis, unspecified, without bleeding; K57.30 Diverticulosis of large intestine without perforation or abscess without bleeding; I10 Essential (primary) hypertension; J45.909 Unspecified asthma, uncomplicated; F17.210 Nicotine dependence, cigarettes, uncomplicated; Z79.51 Long term (current) use of inhaled steroids; Z79.899 Other long term (current) drug therapy; Z90.49 Acquired absence of other specified parts of digestive tract
CPT/HCPCS: 88305; 45385; 43239; J2001; J2704